=== PATIENT | female | born 1945 | race Caucasian/White ===

== ENCOUNTER → 2016-05-09 | Outpatient (CLI) | payer OTHER ==
[~2016-05-09] MED LIST: AMLO-110 PO; ASPI81TA28 PO; CHOL2000 PO; CZR50 PO; OMEG10007 PO; ONDA4TAB10 SL; VITACAP26 PO
--- NOTE | 2016-05-09 10:59 | DIAGNOSTIC IMAGING REPORT ---
NECK ULTRASOUND HISTORY: Evaluate parotid mass. COMPARISON: A report from an outside hospital brain MRI 02/22/2016. FINDINGS: Real-time sonographic imaging of the left parotid gland was performed. There is a 4 x 3 mm round anechoic lesion within the left parotid gland. This does not demonstrate color flow and likely represents a cyst. 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 Electronically signed by: Raghu Calixto M.D. 05/09/2016 10:57 AM Dictated Date/Time: 05/09/2016 10:56 AM
== END | disposition home or self-care (01) ==
LOC: C.ULTR 10:10
DX: R22.0 Localized swelling, mass and lump, head (principal)

== ENCOUNTER → 2016-07-23 | Outpatient (CLI) | payer OTHER ==
[2016-07-23 11:06] LABS: ALT/SGPT 24 U/L (12-78); AST/SGOT 16 U/L (15-37); BLOOD UREA NITROGEN 12 mg/dl (7-18); BUN/CREATININE RATIO 14.9 (10-20); CALCIUM 8.9 mg/dl (8.5-10.1); CARBON DIOXIDE 27 mmol/L (21-32); CHLORIDE 110 mmol/L (98-107); CREATININE 0.79 mg/dl (0.60-1.20); GLUCOSE 121 mg/dl (70-99); POTASSIUM 4.1 mmol/L (3.5-5.1); SODIUM 143 mmol/L (136-145)
[2016-07-23 11:13] LABS: ESTIMATED AVERAGE GLUCOSE 123 mg/dl; HA1C FLAG Normal (Normal)
[2016-07-23 11:17] LABS: ALKALINE PHOSPHATASE 58 U/L (45-117); CHOLESTEROL 203 mg/dl (0-200); CHOLESTEROL/HDL RATIO 3.9; HDL CHOLESTEROL 52 mg/dl; LDL CHOLESTEROL CALCULATED 121 mg/dl; TRIGLYCERIDES 151 mg/dl (0-150); VERY LOW DENSITY LIPOPROT CALC 30 mg/dl
--- NOTE | 2016-07-29 06:15 | CODING QUERY MEDICAL NECESSITY ---
SUPPORTING DIAGNOSIS NEEDED Dr. Tavera, A supporting diagnosis is required for the test/procedure performed on this patient in order for us to be reimbursed by the patient's insurance. Please provide a supporting diagnosis for the following test/procedure listed below next to the test name along with your signature. *If there is no additional diagnosis for this patient that would support the following test/procedure please document that below next to the test/procedure. Test(s)/Procedure(s) that require a supporting diagnosis: * [id number] GLYCATED HEMOGLOBIN DIAGNOSIS: DATE OF SERVICE: 07/23/16 Provider Signature: Date: Thank you Asael Carrion [facility] Information Management Once completed, please kindly fax back to [phone] For questions please call [phone]
== END | disposition home or self-care (01) ==
LOC: C.LABBC 08:02
PROVIDERS: ATTEND Internal Medicine
DX: K76.0 Fatty (change of) liver, not elsewhere classified (principal); I10 Essential (primary) hypertension; R73.03 Prediabetes; R42 Dizziness and giddiness

== ENCOUNTER → 2016-11-20 | Outpatient (CLI) | payer OTHER ==
[~2016-11-20] MED LIST changes: -ONDA4TAB10 SL
--- NOTE | 2016-11-20 11:52 | DIAGNOSTIC IMAGING REPORT ---
Neck ULTRASOUND HISTORY: K11.8 Lesion of parotid [id number] Parotid mass COMPARISON: Neck ultrasound 05/09/2016. FINDINGS: Real-time sonographic images of the left parotid gland was performed. The small cystic structure seen on the previous study is either adjacent to or part of a probable lymph node within the left parotid gland. This measures a total size of 1.4 x 0.5 cm. IMPRESSION: The small cystic structure seen on the previous study is either adjacent to or part of a probable lymph node within the left parotid gland. However, recommend dedicated neck CT or MRI for confirmation of this finding. Electronically signed by: Raghu Calixto M.D. 11/20/2016 11:51 AM Dictated Date/Time: 11/20/2016 11:46 AM
== END | disposition home or self-care (01) ==
LOC: C.ULTR 10:42
DX: K11.8 Other diseases of salivary glands (principal); R93.8 Abnormal findings on diagnostic imaging of other specified body structures

== ENCOUNTER → 2016-11-25 | Outpatient (CLI) | payer OTHER ==
--- NOTE | 2016-11-25 10:20 | DIAGNOSTIC IMAGING REPORT ---
LEFT KNEE 3 VIEWS CLINICAL HISTORY: Left knee pain. Swelling of left knee joint. COMPARISON: None FINDINGS: Alignment of the left knee is anatomic. There is no fracture or suspicious lesion. There is a moderate-sized left knee joint effusion. There is moderate osteophytosis of the patellofemoral compartment. Joint spaces are preserved. IMPRESSION: 1. No acute fracture. 2. Moderate-sized left knee joint effusion. 3. Moderate osteoarthritis of the patellofemoral compartment with minimal osteoarthritis within the medial and lateral compartments. Electronically signed by: Doyle Brothers M.D. 11/25/2016 10:18 AM Dictated Date/Time: 11/25/2016 10:17 AM
== END | disposition home or self-care (01) ==
LOC: C.RAD 09:51
PROVIDERS: ATTEND Internal Medicine
DX: M25.462 Effusion, left knee (principal); M25.562 Pain in left knee

== ENCOUNTER → 2016-11-27 | Outpatient (CLI) | payer OTHER ==
--- NOTE | 2016-11-27 12:20 | DIAGNOSTIC IMAGING REPORT ---
EXTREMITY NONVASCULAR LIMITED HISTORY: 71 years-old Female M25.562 Knee pain, leftM25.462 Swelling of left knee jointLEFT K COMPARISON: Left knee radiographs 11/25/2016 TECHNIQUE: Multiple real-time sonographic images of the soft tissues about posterior knee were obtained assessing grayscale appearance and color flow. FINDINGS: There is a lobulated cystic structure which is centrally anechoic about the posterior knee in the popliteal fossa, 1.8 x 6.6 x 1.7 cm with minimal internal septations and perhaps some layering debris. No internal vascularity. IMPRESSION: Mildly complex Stevens's cyst measures up to 6.6 cm. The above report was generated using voice recognition software. It may contain grammatical, syntax or spelling errors. Electronically signed by: Jagdeep Ren M.D. 11/27/2016 12:19 PM Dictated Date/Time: 11/27/2016 12:17 PM
== END | disposition home or self-care (01) ==
LOC: C.ULTR 11:32
PROVIDERS: ATTEND Internal Medicine
DX: M25.562 Pain in left knee (principal); M25.462 Effusion, left knee; M71.22 Synovial cyst of popliteal space [Baker], left knee

== ENCOUNTER → 2016-11-27 | Outpatient (CLI) | payer OTHER ==
[~2016-11-27] MED LIST changes: +OPTIRAY 320 IV PRN
--- NOTE | 2016-11-27 14:09 | DIAGNOSTIC IMAGING REPORT ---
CT OF THE NECK WITH CONTRAST CLINICAL HISTORY: Left parotid mass. COMPARISON STUDY: Left neck ultrasound November 20, 2016 and May 09, 2016. Technique: Axial images of the neck were obtained following intravenous injection of 92 cc Optiray 320 IV. FINDINGS: Visualized portions of the intracranial contents are unremarkable. There is no fluid within the mastoid air cells. There is a cyst or small polyp within the right maxillary sinus. No parotid masses are identified on this examination. There are few benign left periparotid lymph nodes. A definite correlate for the finding on ultrasound of November 20, 2016 is not identified. The parotid glands are normal. Epiglottis is normal. Lung apices are clear. There is no cervical lymphadenopathy. There are no suspicious osseous lesions. IMPRESSION: 1. No left parotid lesion identified by CT. No definite correlate for the finding on exam of November 20, 2016. This could reflect a benign parotid/periparotid lymph node. Overall, the sonographic and CT findings are likely benign. 2. No cervical lymphadenopathy. Electronically signed by: Doyle Brothers M.D. 11/27/2016 2:07 PM Dictated Date/Time: 11/27/2016 1:44 PM
== END | disposition home or self-care (01) ==
LOC: C.CTS 11:30
PROVIDERS: ATTEND Physician Assistant
DX: K11.9 Disease of salivary gland, unspecified (principal); M25.562 Pain in left knee; M25.462 Effusion, left knee; M71.22 Synovial cyst of popliteal space [Baker], left knee

== ENCOUNTER → 2017-05-28 | Outpatient (CLI) | payer OTHER ==
[~2017-05-28] MED LIST changes: -OPTIRAY 320 IV PRN
[2017-05-28 10:57] LABS: HEMATOCRIT 43.9 % (37-47); HEMOGLOBIN 14.8 g/dL (12.0-16.0); MEAN CELL VOLUME 93.4 fL (80-100); MEAN CORPUSCULAR HEMOGLOBIN 31.5 pg (25-34); MEAN CORPUSCULAR HGB CONC 33.7 g/dl (32-36); PLATELET COUNT 222 K/uL (130-400); RED CELL DISTRIBUTION WIDTH CV 12.1 % (11.5-14.5); RED CELL DISTRIBUTION WIDTH SD 40.8 fL (36.4-46.3)
[2017-05-28 11:25] LABS: HEMOGLOBIN A1C 6.1 % (4.5-5.6)
[2017-05-28 11:40] LABS: ALBUMIN 3.7 gm/dl (3.4-5.0); ALT/SGPT 21 U/L (12-78); BLOOD UREA NITROGEN 13 mg/dl (7-18); CALCIUM 9.2 mg/dl (8.5-10.1); CARBON DIOXIDE 26 mmol/L (21-32); CHOLESTEROL 212 mg/dl (0-200); CREATININE 0.78 mg/dl (0.60-1.20); GLUCOSE 129 mg/dl (70-99); SODIUM 139 mmol/L (136-145)
[2017-05-28 11:43] LABS: ALKALINE PHOSPHATASE 57 U/L (45-117); AST/SGOT 12 U/L (15-37); LDL CHOLESTEROL CALCULATED 124 mg/dl; TOTAL PROTEIN 7.8 gm/dl (6.4-8.2)
== END | disposition home or self-care (01) ==
LOC: C.LABBC 08:41
PROVIDERS: ATTEND Internal Medicine
DX: E78.5 Hyperlipidemia, unspecified (principal); K76.0 Fatty (change of) liver, not elsewhere classified; E88.9 Metabolic disorder, unspecified

== ENCOUNTER → 2017-05-29 | Outpatient (CLI) | payer OTHER ==
--- NOTE | 2017-05-29 12:46 | DIAGNOSTIC IMAGING REPORT ---
L-SPINE MIN 4 VIEWS ROUTINE CLINICAL HISTORY: M54.30 back pain with left leg radiculopathy. COMPARISON STUDY: No previous studies for comparison. FINDINGS: The bones are osteopenic. No acute fractures or traumatic subluxations are visualized. There is L4-5 and L5-S1 facet joint arthropathy. There is a minimal grade 1 spondylolisthesis of L5 and S1. IMPRESSION: Osteopenia. Mild degenerative change. No fractures or subluxations identified. Electronically signed by: Kadeem Sharpe M.D. 05/29/2017 12:45 PM Dictated Date/Time: 05/29/2017 12:44 PM
--- NOTE | 2017-05-29 12:47 | DIAGNOSTIC IMAGING REPORT ---
SI JOINTS 3 OR MORE VIEWS CLINICAL HISTORY: M54.30 left SI joint pain COMPARISON STUDY: No previous studies for comparison. FINDINGS: There is lower lumbar facet joint arthropathy. No fractures are visualized. There is no SI joint fusion. There is no SI joint and diastases. There are no erosive changes. IMPRESSION: No evidence of an inflammatory sacroiliitis. Lower lumbar facet joint arthropathy. Electronically signed by: Kadeem Sharpe M.D. 05/29/2017 12:45 PM Dictated Date/Time: 05/29/2017 12:45 PM
== END | disposition home or self-care (01) ==
LOC: C.RAD1850 12:00
PROVIDERS: ATTEND Internal Medicine
DX: M54.30 Sciatica, unspecified side (principal); M85.88 Other specified disorders of bone density and structure, other site

== ENCOUNTER → 2017-06-17 | Outpatient (CLI) | payer OTHER ==
[~2017-06-17] MED LIST changes: +CYAN100T PO
--- NOTE | 2017-06-17 11:12 | DIAGNOSTIC IMAGING REPORT ---
LEG LENGTH STUDY (WHOLE LEG) CLINICAL HISTORY: LEG LENGTH DISCREPANCY COMPARISON STUDY: None FINDINGS: Maximum right leg length is 87.7 cm. Maximum length length is 88.1 cm. Femoral length on the right is 48.7 cm. On the left is 49.1 cm. IMPRESSION: 1. The right leg is slightly shorter than that of the left with a discrepancy of 4 mm. 2. Femoral length demonstrates the right femur to be 4 mm shorter than that of the left accounting for the bulk of the discrepancy. The above report was generated using voice recognition software. It may contain grammatical, syntax or spelling errors. Electronically signed by: Kamaljit Cronin M.D. 06/17/2017 11:11 AM Dictated Date/Time: 06/17/2017 11:08 AM
== END | disposition home or self-care (01) ==
LOC: C.RADBC 10:25
PROVIDERS: ATTEND Physician Assistant
DX: M21.751 Unequal limb length (acquired), right femur (principal)

== ENCOUNTER → 2017-07-07 | Outpatient (CLI) | payer OTHER ==
[~2017-07-07] MED LIST changes: -VITACAP26 PO
--- NOTE | 2017-07-08 05:59 | PAP/PSG TECHNICIAN REPORT ---
[facility] Program Management Manager Polysomnogram Report Study name: None Report date: 07/08/2017 Study date: 07/07/2017 Referring Physician: Dr. Kenn Jaime DO Name: TAMMY BASILIO I Interpreting Physician: Kenn Jaime D.O. Date of : 1945 Program Management Manager: Chivo Dotson RPSGT. Sex: Female Age: 71 StudyType: PSG PAP Weight: 207 lbs 16 inches Height: 71 years, Height 5' 7" Neck Circum: BMI: 32.42 Medications: ASPIRIN 81 MG, FISH OIL 1000 MG, AMLODIPINE BESYLATE 5 MG, LOSARTAN POTASSIUM 50 MG, TRAZAODONE HCL 50 MG, MELOICAM 15 MG, FLUTICASONE PROPIONATE 50 MCG/ACT, VIT D Patient History PATIENT HAD A SLEEP STUDY DONE IN May. SHE WAS POSITIVE FOR AN CASANDRA WITH AN AHI OF 19. SHE IS HERE TODAY FOR A CPAP TITRATION. ESS = 3 RM 3 Parameters Monitored NPSG: E1-M2, E2-M1, Fp1-M2, Fp2-M1, F3-M2, F4-M2, F4-M1, C3-M2, C4-M2, C4-M1, O1-M2, O2-M2, O2-M1, T3-M2, T4-M1, P3-M2, P4-M1, CHIN1, CHIN2, HR, EKG, Legs, PFLOW, SNOR, FLOW, CFLOW, Tidal Volume, THOR, ABDO, SpO2, PLTH, CPRESS, ETCO2 Wave, ETCO2, pH Sleep Architecture Sleep Stages Time at Lights Off 9:34:48 PM STAGES Time (min.) TST (%) Time at Lights On 5:31:18 AM Wake 174.0 -- Total Recording Time (TRT) 477.00 min. N1 8.0 3 Total Sleep Period (TSP) 417.5 min. N2 154.0 51 Total Sleep Time (TST) 302.5min. N3 82.5 27 Awake Time 174.0 min. REM 58.0 19 Wake after Sleep Onset 115.0 min. Sleep Efficiency (SE) 63 % Sleep Onset Latency (PHILIP) 59.0 min. Number of Stage 1 Shifts None Awakenings 12 Stage Changes 51 Number of REM periods 3 REM 58.0 19 REM Latency 50.0 min. NREM 244.5 81 Body Position Analysis Supine Right Left Side Prone Vertical Total Sleep Time (min.) 93.6 231.0 53.0 284.00 0.0 0.0 Total Sleep Time (%) 6% 76% 18% 94 0% N/A% Total Sleep Time REM (min.) 0.0 50.0 8.0 None 0.0 0.0 Total Sleep Time NREM (min.) 18.5 181.0 45.0 None 0.0 0.0 Intermittent Wake (min.) 75.1 72.4 26.5 None 0.0 0.0 Total Sleep Period (%) 16% None None None None None Arousals Myoclonus (PLM) * Events Count Index Events Count Index Spontaneous 24 5 Events Awake (PLMW) 94 32.4 Respiratory 2 0.6 Events Asleep w/ Arousal (PLMA) 10 2.0 PLM 9 2 Events Asleep w/o Arousal (PLMS) 222 44.0 Snoring 2 0 Total Asleep 232 46.0 Total 37 7 Total 326 41 Respiratory Analysis * CA OA MA CH H RERA Total Count 1 0 0 0 10 2 11 Index 0.2 0.0 0.0 0 2.0 0 2.6 Mean Duration 18.7 0.0 0.0 0.00 16.1 15.8 16.3 Longest Duration 18.7 0.0 0.0 0.00 0.0 18.3 28.9 Respiratory Event Summary Total Supine ~Supine Right Left Prone REM NREM Apneas Count 1 0 1 1 0 N/A 1 0 Index 0.2 0 0 0.3 0.0 N/A 1 0 Hypopneas (4% Desat) Count 10 4 6 6 0 N/A 1 9 Index 2.0 13.0 1 1.6 0.0 N/A 1.0 2.2 Apneas & All Hypopneas Count 11 4 7 7 0 N/A 2 9 Index 2.2 13 1 2 0 N/A 2.1 2.2 Respiratory Events (Sheriff'S Sergeant+All Hyp+RERA) Count 11 4 9 9 0 N/A 2 9 Index 2.6 13 2 2.3 0.0 N/A 2.1 2.7 Respiratory Related Arousal Count 2 4 2 2 0 N/A 0 3 Index 0.6 3 0 1 0 N/A 0 1 Snoring Analysis Supine Right Left Prone REM NREM Total Snore duration 2.8 min Snores count 3 140 1 N/A 15 129 144 Snore mean duration 1.2 Sec Snores index 10 36 1 N/A 15.5 31.7 28.6 TST with snoring (%) 0.9% Desaturation Event Summary: Minimum %SpO2 Event Count Mean/Min/Max Duration(sec.) Desaturation Index % Time In Bed > 90 21 27.9 / 10.3 / 55.0 3.7 72.6 86 - 90 11 21.9 / 10.3 / 65.7 5.2 27.1 81 - 85 0 N/A 0.0 0.3 76 - 80 0 N/A 0.0 0.0 71 - 75 0 N/A 0.0 0.0 66 - 70 0 N/A 0.0 0.0 61 - 65 0 N/A 0.0 0.0 56 - 60 0 N/A 0.0 0.0 51 - 55 0 N/A 0.0 0.0 < 50 0 N/A 0.0 0.0 Total REM NREM Awake <50% 0.0 min. 0.0 min. 0.0 min. 0.0 min. 51 - 60% 0.0 min. 0.0 min. 0.0 min. 0.0 min. 61 - 70% 0.0 min. 0.0 min. 0.0 min. 0.0 min. 71 - 80% 0.1 min. 0.0 min. 0.0 min. 0.1 min. 81 - 90% 128.5 min. 25.5 min. 76.4 min. 26.6 min. 91 - 100% 341.6 min. 32.5 min. 168.1 min. 141.0 min. Average 91 91 91 92 Minimum SpO2 79 86 84 79 Desaturation Event Index 3.4 2.1 2.2 5.5 # Desat. Events below 89% 17 2 8 7 Time(%) with Saturation below 89% 4.7 0.2 3.1 1.4 Time(min.) with Saturation below 89% 22.1 0.8 14.7 6.6 Time (mins) REM (mins) NREM (mins) % of TST SpO2 Below 90% 11 2 N9 11.7 SpO2 Below 88% 3 0 0 3 Heart Rate Analysis Min (bpm) Max (bpm) Average (bpm) Awake 46 80 54 NREM 45 72 53 REM 46 62 52 Overall 45 72 53 Supplemental O2 Values Minimum O2 level: None Value Start Time End Time Program Management Manager Comments Mrs. Basilio slept in the right, left and supine positions. No cardiac arrhythmia noted. Leg movements noted. No bruxism noted. CPAP was initiated at +4 CMH2O and up-titrated to an optimal level of +7 CMH2O, which nearly eliminated all respiratory events and snoring. A [employer] Eson 2 size medium nasal mask was used during titration Mrs. Basilio awoke to use the restroom 1 time during the night. Mrs. Basilio stated I did not sleep as well as I do when I am in my own bed. The final report will be interpreted and signed by a sleep physician. The completed physician report will then be placed in the patient medical record. Therapy Event: Therapy (cm H20) 4 5 6 7 Total Time at Pressure (min.) 74.9 84.2 98.1 219.3 TST at Pressure (min.) 15.4 83.7 47.6 155.8 # Periods 1 1 1 1 Sleep Onset (min.) 59.0 0.0 0.0 0.0 REM Onset (min.) N/A 34.1 N/A 85.3 Sleep Efficiency % 20 99 48 71 Wakefulness (%) 79.4 0.6 51.5 29.0 Wakefulness (min.) 59.5 0.5 50.5 63.5 NREM 1 (%) 1.3 0.6 2.0 2.1 NREM 1 (min.) 1.0 0.5 2.0 4.5 NREM 2 (%) 19.2 50.7 27.6 31.8 NREM 2 (min.) 14.4 42.7 27.1 69.8 NREM 3 (%) 0.0 30.9 18.9 17.3 NREM 3 (min.) 0.0 26.0 18.5 38.0 REM (%) 0.0 17.2 0.0 19.8 REM (min.) 0.0 14.5 0.0 43.5 # Arousals 3 10 9 15 Arousal Index 11.7 7.2 11.3 5.8 # Snore 48 79 8 9 Snore Index 187.1 56.6 10.1 3.5 AHI 3.9 3.6 3.8 0.8 AHI Supine N/A N/A 55.9 3.9 AHI Non-Supine 3.9 3.6 0.0 0.4 NREM AHI 3.9 3.5 3.8 0.5 REM AHI N/A 4.1 N/A 1.4 RDI 11.7 3.6 3.8 0.8 # Obstructive 0 0 0 0 # Central Ap 0 0 0 1 # Mixed 0 0 0 0 # Hypopneas 1 5 3 1 RERAS 2 0 0 0 Total Respiratory Events 3 5 3 2 Time Below SpO2 89.00% (min.) 0.1 0.5 1.9 13.0 Mean NREM SpO2 (%) 91 91 91 91 Mean REM SpO2 (%) N/A 91 N/A 91 Mean Sleep SpO2 (%) 91 91 91 91 Min NREM SpO2 (%) 88 88 85 84 Min REM SpO2 (%) N/A 88 N/A 86 Position Supine (min.) 0.0 0.0 3.2 15.3 Position Non-supine (min.) 15.4 83.7 44.4 140.5 LM Index Sleep 7.8 45.1 90.8 36.6 LM Index NREM 7.8 49.4 90.8 46.5 LM Index REM N/A 24.8 N/A 11.0 Mean Heart Rate (bpm) 56 55 54 50 Min Heart Rate (bpm) 51 49 49 45
--- NOTE | 2017-07-09 09:40 | POLYSOMNOGRAPH REPORT ---
CLINICAL DATA: The patient is a 71-year-old female with a history of snoring and observed apneas. A diagnostic sleep study done 06/10/2017 showed moderate sleep apnea with an apnea-hypopnea index of 19. This was an in-lab overnight CPAP titration study. Her BMI is 32.42. SLEEP ARCHITECTURE: The total sleep period was 417.5 minutes. The total sleep time was 302.5 minutes. The sleep efficiency was moderately reduced to 63%. The sleep onset latency was prolonged to 59 minutes. Wake after sleep onset was prolonged to 115 minutes. The REM latency was 50 minutes. Sleep consisted of stage N1 3%, stage N2 51%, stage N3 27%, stage REM 19%. AROUSAL DATA: The patient had a total of 37 arousals including 24 spontaneous arousals, 2 respiratory arousals, 9 PLM arousals and 2 snoring arousals. PERIODIC LIMB MOVEMENT DATA: The patient had a total of 232 periodic limb movements of sleep for a PLM index of 46. There were 10 arousals associated with limb movements for a PLM arousal index of only 2.0. EKG: The cardiac rates ranged from 45-72 beats per minute. The average heart rate was 53 beats per minute. No cardiac arrhythmia was noted. RESPIRATORY DATA: The patient's respiratory events were treated with nasal CPAP. She had a total of 11 respiratory events including 1 central apnea and 10 hypopneas. The longest apnea was 18.7 seconds. The mean duration of the hypopneas was 16.1 seconds. There were 2 RERAs. The apnea-hypopnea index was only 2.2 events per hour. At the final pressure of 7 cm, her apnea-hypopnea index was only 0.8. She was at that pressure for a total of 219.3 minutes. OXIMETRY DATA: The average saturation for the night was 91%. The minimum saturation was 79%. There was a total of 22.1 minutes with saturations less than 89%. The minimum saturation of 79% was likely artifact. The true lowest saturation appears to be about 87%. 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 No cardiac arrhythmia noted. Leg movements were noted. No bruxism noted. CPAP was initiated at 4 cm and uptitrated to an optimum level of 7 cm which nearly eliminated all respiratory events and snoring. A Mark43 Eson 2 size medium nasal mask was used during titration. The patient awakened to use the restroom one time during the night. She indicated she did not sleep as well as she does in her own bed. IMPRESSION: Moderate obstructive sleep apnea -- resolved with nasal CPAP at 7 cm. COMMENTS: The patient had difficulty initiating sleep. It took almost 1 hour to fall asleep. She also had 2 somewhat prolonged awakenings during the nighttime. When she did sleep, it was fairly well consolidated. There was a significant increase in limb movements compared with her first night study. This is not unexpected with resolution of sleep disordered breathing. The limb movements likely do not need treatment. RECOMMENDATIONS: 1. It is advised that the patient be started on nasal CPAP at 7 cm. 2. It is advised that she be ordered a [employer] Eson 2 size medium nasal mask. 3. Weight loss is advised in light of the elevation of body mass index of 32.42. 4. It is advised that the patient avoid sleeping in the supine position. 5. The patient should be seen in followup between day 31 and day 90. She will be taking a trip very soon to her homeland in [place]. An arrangement has been made for her to follow back up with me after that trip is completed.
== END | disposition home or self-care (01) ==
LOC: C.NEUR 20:00
PROVIDERS: ATTEND Internal Medicine Pulmonary Disease
DX: G47.30 Sleep apnea, unspecified (principal)